=== PATIENT | female | born 2000 | race Caucasian/White ===

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

== ENCOUNTER → 2022-01-09 | Outpatient (CLI) | payer OTHER ==
--- NOTE | 2022-01-09 11:34 | US ---
EXAMINATION TYPE: US transvaginal DATE OF EXAM: 01/09/2022 COMPARISON: US CLINICAL HISTORY: N94.6 PAINFUL MENSTRUAL PERIODS. Painful periods. G0. TECHNIQUE: Transvaginal (TV). Date of LMP: 01/02/2022 EXAM MEASUREMENTS: Uterus: 6.5 x 4.4 x 2.9 cm Endometrial Stripe: 0.5 cm Right Ovary: 3.5 x 3.1 x 2.3 cm Left Ovary: 3.4 x 2.3 x 2.3 cm 1. Uterus: Anteverted Appears slightly heterogeneous. Subcentimeter anechoic area seen in cervix. 2. Endometrium: Fluid seen in cervix: 1.5 x 0.7 x 0.2 cm. 3. Right Ovary: Follicles seen. 4. Left Ovary: Largest anechoic area seen measures 1.0 x 0.8 x 0.9 cm. 5. Bilateral Adnexa: Fluid seen adjacent to left ovary. 6. Posterior cul-de-sac: Fluid seen: 1.3 x 0.7 x 0.6 cm. IMPRESSION: 1. Small amount of free fluid noted. 2. Endometrial fluid as noted.
== END | disposition home or self-care (01) ==
LOC: RADUSWWP 10:16
PROVIDERS: ATTEND Family Medicine
DX: N94.6 Dysmenorrhea, unspecified (principal)
CPT/HCPCS: 76830

== ENCOUNTER 2023-03-10 15:39 | Emergency (ER) | payer OTHER ==
[2023-03-10 16:56] VITALS: RESP 18
[2023-03-10] MEDS ORDERED: IPRATROPIUM-ALBUTEROL 3 ML NEB INHALATION STA (17:08)
--- NOTE | 2023-03-10 17:09 | ED ---
URI HPI - General Chief Complaint: Upper Respiratory Infection Stated Complaint: Fever Time Seen by Provider: 03/10/23 16:53 Source: patient, RN notes reviewed, old records reviewed Mode of arrival: ambulatory Limitations: no limitations - History of Present Illness Initial Comments: This is a 22-year-old female to the emergency department for evaluation today. Patient presents today for evaluation regards to cough congestion with history of asthma. 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 She denies fevers but her boyfriend is with her also states he has not been feeling significantly well. Patient otherwise has no medical history takes no medications and has had no recent travel history. Patient does usually have an inhaler for asthma but is currently out of her inhaler MD Complaint: cough, nasal congestion -: days(s) Severity: mild Severity scale (1-10): 2 Consistency: constant Improves With: nothing Context: sick contacts Associated Symptoms: chills, myalgias, cough, shortness of breath - Related Data Home Medications Medication Instructions Recorded Confirmed Albuterol Inhaler [Ventolin Hfa 2 puff INHALATION RT-Q6H PRN 07/26/19 07/26/19 Inhaler] Previous Rx's Medication Instructions Recorded Ibuprofen [Motrin] 600 mg PO Q6HR PRN #20 tab 07/26/19 Azithromycin [Zithromax] 500 mg PO DAILY #5 tab 03/10/23 Cefdinir [Omnicef] 300 mg PO Q12HR #14 capsule 03/10/23 Allergies Allergy/AdvReac Type Severity Reaction Status Date / Time pineapple Allergy Swelling Verified 03/10/23 15:43 Review of Systems ROS Statement: Those systems with pertinent positive or pertinent negative responses have been documented in the HPI. ROS Other: All systems not noted in ROS Statement are negative. Past Medical History Past Medical History: Asthma History of Any Multi-Drug Resistant Organisms: None Reported Past Surgical History: Ear Surgery Additional Past Surgical History / Comment(s): ear surg x 8 and oral surg x 2 Past Psychological History: Anxiety Smoking Status: Never smoker Past Alcohol Use History: None Reported Past Drug Use History: None Reported General Exam Limitations: no limitations General appearance: alert, in no apparent distress Head exam: Present: atraumatic, normocephalic, normal inspection Eye exam: Present: normal appearance, PERRL, EOMI. Absent: scleral icterus, conjunctival injection, periorbital swelling ENT exam: Present: normal exam, mucous membranes moist Neck exam: Present: normal inspection. Absent: tenderness, meningismus, ly mphadenopathy Respiratory exam: Present: normal lung sounds bilaterally. Absent: respiratory distress, wheezes, rales, rhonchi, stridor Cardiovascular Exam: Present: regular rate, normal rhythm, normal heart sounds. Absent: systolic murmur, diastolic murmur, rubs, gallop, clicks GI/Abdominal exam: Present: soft, normal bowel sounds. Absent: distended, tenderness, guarding, rebound, rigid Extremities exam: Present: normal inspection, full ROM, normal capillary refill. Absent: tenderness, pedal edema, joint swelling, calf tenderness Back exam: Present: normal inspection Neurological exam: Present: alert, oriented X3, CN II-XII intact Psychiatric exam: Present: normal affect, normal mood Skin exam: Present: warm, dry, intact, normal color. Absent: rash Course Vital Signs 03/10/23 03/10/23 03/10/23 15:43 16:54 17:19 Temperature 97.6 F Pulse Rate 97 71 Respiratory 16 18 Rate Blood Pressure 124/80 O2 Sat by Pulse 96 Oximetry 03/10/23 03/10/23 03/10/23 17:27 17:40 18:41 Temperature 98 F 98.1 F Pulse Rate 74 70 73 Respiratory 18 18 Rate Blood Pressure 129/77 125/71 O2 Sat by Pulse 98 98 Oximetry - Reevaluation(s) Reevaluation #1: 03/10/23 18:24 Medical records reviewed Reevaluation #2: 03/10/23 18:24 Patient symptoms improved Reevaluation #3: 03/10/23 18:24 Patient informed results and questions answered Reevaluation #4: 03/10/23 18:24 Was pt. sent in by a medical professional or institution ([facility], [facility], urgent care, hospital, or senior living...) When possible be specific @ -no Did you speak to anyone other than the patient for history (EMS, parent, family, police, friend...)? What history was obtained from this source @ -no Did you review nursing and triage notes (agree or disagree)? Why? @ -agree Are old charts reviewed (outside hosp., previous admission, EMS record, old EKG, old radiological studies, urgent care reports/EKG's, senior living records)? Report findings @ -yes Differential Diagnosis (chest pain, altered mental status, abdominal pain women, abdominal pain men, vaginal bleeding, weakness, fever, dyspnea, syncope, headache, dizziness, GI bleed, back pain, seizure, CVA, palpatations, mental health, musculoskeletal)? @ -prior EKG interpreted by me (3pts min.). @ -no X-rays interpreted by me (1pt min.). @ -yes CT interpreted by me (1pt min.). @ -no U/S interpreted by me (1pt. min.). @ -no What testing was considered but not performed or refused? (CT, X-rays, U/S, labs)? Why? @ -none What meds were considered but not given or refused? Why? @ -none Did you discuss the management of the patient with other professionals (professionals i.e. , PA, [facility], lab, RT, psych nurse, medical social worker, head of mathematics, teacher, amphibious operations officer, casework specialist)? Give summary @ -no Was smoking cessation discussed for >3mins.? @ -no Was critical care preformed (if so, how long)? @ -no Were there social determinants of health that impacted care today? How? (Homelessness, low income, unemployed, alcoholism, drug addiction, t ransportation, low edu. Level, literacy, decrease access to med. care, assisted, rehab)? @ -none Was there de-escalation of care discussed even if they declined (Discuss DNR or withdrawal of care, Hospice)? DNR status @ -no What co-morbidities impacted this encounter? (DM, HTN, Smoking, COPD, CAD, Cancer, CVA, ARF, Chemo, Hep., AIDS, mental health diagnosis, sleep apnea, morbid obesity)? @ -none Was patient admitted / discharged? Hospital course, mention meds given and route, prescriptions, significant lab abnormalities, going to OR and other pertinent info. @ - 22 female to the emergency department for evaluation. Patient has increased cough and congestion positive for pneumonia on x-ray. Patient placed on antibiotics given inhaler from and can be discharged Discharge Undiagnosed new problem with uncertain prognosis? @ -no Drug Therapy requiring intensive monitoring for toxicity (Heparin, Nitro, Insulin, Cardizem)? @ -no Were any procedures done? @ -no Diagnosis/symptom? @ -Chest pain, bronchitis of breast for infection and pneumonia Acute, or Chronic, or Acute on Chronic? @ -Acute Uncomplicated (without systemic symptoms) or Complicated (systemic symptoms)? @ -Complicated Side effects of treatment? @ -no Exacerbation, Progression, or Severe Exacerbation? @ -exacerbation Poses a threat to life or bodily function? How? (Chest pain, [place], [place], pneumonia, PE, COPD, DKA, ARF, appy, cholecystitis, CVA, Diverticulitis, Homicidal, Suicidal, threat to staff... and all critical care pts) @ -no Reevaluation #5: 03/10/23 18:24 Differential Dyspnea: Coronary syndrome, arrhythmia, tamponade, asthma, COPD, pulmonary embolism, pneumonia, pneumothorax, pulmonary effusion, anaphylaxis, diabetic ketoacidosis, flailed chest, pulmonary contusion, diaphragmatic rupture, anemia, neuromuscular, this is not meant to be an all-inclusive list. Medical Decision Making - Medical Decision Making 22 female to the emergency department for evaluation. Patient has increased cough and congestion positive for pneumonia on x-ray. Patient placed on antibiotics given inhaler from and can be discharged - Lab Data Lab Results 03/10/23 Range/Units 16:45 Influenza Type A (PCR) Not Detected (Not Detectd) Influenza Type B (PCR) Not Detected (Not Detectd) RSV (PCR) Not Detected (Not Detectd) SARS-CoV-2 (PCR) Not Detected (Not Detectd) - Radiology Data Radiology results: report reviewed (Chest x-rays positive for pneumonia and interpreted by me), image reviewed Disposition Clinical Impression: Pneumonia, Acute upper respiratory infection, Community acquired pneumonia Disposition: HOME SELF-CARE Instructions (If sedation given, give patient instructions): Community Acquired Pneumonia (ED) Prescriptions: Cefdinir [Omnicef] 300 mg PO Q12HR #14 capsule Azithromycin [Zithromax] 500 mg PO DAILY #5 tab Is patient prescribed a controlled substance at d/c from ED?: No Referrals: Rossana Calhoun MD [Primary Care Provider] - 1-2 days Time of Disposition: 18:20
--- NOTE | 2023-03-10 17:52 | XR ---
EXAMINATION TYPE: XR chest 1V portable DATE OF EXAM: 03/10/2023 5:18 PM CLINICAL INDICATION:Female, 22 years old with history of cough; COMPARISON: None TECHNIQUE: XR chest 1V portable Frontal view of the chest. FINDINGS: Lungs/Pleura: Subtle right lower lobe airspace opacities. There is no evidence of pleural effusion, f ocal consolidation, or pneumothorax. Pulmonary vascularity: Unremarkable. Heart/mediastinum: Cardiomediastinal silhouette is unremarkable. Musculoskeletal: No acute osseous pathology. IMPRESSION: Subtle right lower lobe airspace opacities correlate for pneumonia. Short-term follow-up recommended.
[2023-03-10] MEDS ORDERED: AZITHROMYCIN 500 MG TAB PO STA (18:18)
[2023-03-10] MEDS ORDERED: CEFDINIR 300 MG CAP PO ONE (18:35)
[2023-03-10 18:43] VITALS: BP 125/71; PULSE 73; TEMP 98.1
== END 2023-03-10 18:44 | disposition home or self-care (01) ==
LOC: EC 15:39
DX: J18.9 Pneumonia, unspecified organism (principal); J06.9 Acute upper respiratory infection, unspecified; J45.909 Unspecified asthma, uncomplicated; Z91.018 Allergy to other foods; Z86.59 Personal history of other mental and behavioral disorders; Z79.899 Other long term (current) drug therapy; Z20.822 Contact with and (suspected) exposure to COVID-19
CPT/HCPCS: 71045; 87636; 94640; 99284

== ENCOUNTER → 2023-09-08 | Outpatient (CLI) | payer OTHER ==
--- NOTE | 2023-09-08 12:22 | US ---
EXAMINATION TYPE: US abdomen complete DATE OF EXAM: 09/08/2023 COMPARISON: US 2019 CLINICAL INDICATION: Female, 22 years old with history of R10.9 ABDOMINAL PAIN; Intermittent pain x 2 years. Pain has gotten worse x 1 month. TECHNIQUE: Multiple sonographic images of the abdomen are obtained. FINDINGS: EXAM MEASUREMENTS: Liver Length: 15.5 cm Gallbladder Wall: 0.19 cm CBD: 0.35 cm Spleen: 10.3 cm Right Kidney: 11.7 x 5.3 x 4.2 cm Left Kidney: 12.0 x 4.8 x 6.0 cm PASTORAL COUNSELOR NOTES: Limited due to gas. Pancreas: Limited visibility of tail. Liver: Appears wnl Gallbladder: Appears wnl Evidence for sonographic Tarango's sign: No CBD: Appears wnl Spleen: Appears wnl Right Kidney: No hydronephrosis or masses seen Left Kidney: Rounded isoechoic area in the midpole measuring 3.0 x 3.1 x 2.1 cm. Stability from 2019 indicates a benign column of [place]. No hydronephrosis. Upper IVC: Appears wnl Abd Aorta: Appears wnl IMPRESSION: No gallstones or biliary ductal dilatation. No specific abnormality seen.
--- NOTE | 2023-09-08 12:24 | US ---
EXAMINATION TYPE: US transvaginal DATE OF EXAM: 09/08/2023 COMPARISON: US 01/09/2022 CLINICAL INDICATION: Female, 22 years old with history of N80.9 ENDOMETRIOSIS, UNSPECIFIED; Hx endome triosis, hx ovarian cyst. G0. TECHNIQUE: Transvaginal (TV). Date of LMP: 08/25/2023 EXAM MEASUREMENTS: Uterus: 6.9 x 4.3 x 2.9 cm Endometrial Stripe: 0.58 cm Right Ovary: 3.8 x 3.2 x 3.1 cm for a volume of 19.3 mL. Small follicles are present within. Left Ovary: 4.2 x 2.4 x 2.4 cm for a volume of 12.4 mL. Numerous small follicles are present within. 1. Uterus: Appears wnl. A couple tiny cervical nabothian cysts measuring up to 6 mm. 2. Endometrium: Measures 0.58 cm 3. Right Ovary: Follicles noted 4. Left Ovary: Follicles noted 5. Bilateral Adnexa: Appear wnl 6. Posterior cul-de-sac: Appears wnl IMPRESSION: Prominent follicular change in both ovaries. No dominant cyst is seen. Otherwise, no specific abnorma lity identified.
== END | disposition home or self-care (01) ==
LOC: RADUSWWP 06:50
PROVIDERS: ATTEND Family Medicine
DX: N83.8 Other noninflammatory disorders of ovary, fallopian tube and broad ligament (principal); N80.9 Endometriosis, unspecified; R10.9 Unspecified abdominal pain
CPT/HCPCS: 76700; 76830